=== PATIENT | female | born 1950 | race Two or more races ===

== ENCOUNTER 2018-11-07 17:12 | Inpatient (IN) | payer OTHER ==
[~2018-11-07] VITALS: Ht 152.4 cm; Wt 68.0 kg
[~2018-11-07 17:12] MED LIST: COZAAR100 MG; HYZAAR 100-251 UDTAB PO; SYNTHROID150 MCG PO; VERELAN240 MG PO
[2018-11-07] MEDS ORDERED: SINGULAIR10 MG PO (17:15)
[2018-11-07] MEDS ORDERED: SYMBICORT 16010.2 GM IH (17:16)
--- NOTE | 2018-11-07 17:16 | NUR ---
PACIENTE AL MOMENTO ESTABLE, SIGNOS VITALES ESTABLES, ALERTA Y ORIENTADA X3 SATURANDO AL MOMENTO EN 96%, AL MOMENTO PACIENTE CON SONIDOS CREPITANTES AL AUSCULTARLA Y LEVE SIBILANCIAS. SE CONTINUA MONITOREANDO PRO CAMBIOS.
--- NOTE | 2018-11-07 17:44 | NUR ---
HUA EVALUA PTE. SE ORIENTA A PTE SOBRE TX MEDICO. PTE REFIERE COMPRENDER. SE COLECTAN MUESTRAS DE LABORATORIO BAJO MEDIDAS ASEPTICAS. SE ADMINISTRAN MEDICAMENTOS IRAM ORDEN MEDICA. SE NOTIFICAN MELODIE X. SE NOTIFICAN ABG Y TERAPIAS RESPIRATORIAS.
--- NOTE | 2018-11-07 23:21 | NUR ---
PT ALERTA Y ORIENTADA X3 ESFERAS EN COMPANIA DE FAMILIAR. SE RECIBE EN CAMA CON BARANDAS ELEVADAS Y FRENOS COLOCADOS. HEPARIN LOCK PATANTE. PEAK FLOW [address] DONG[address] PT [place]. PENDIENTE RE-EVALUACION MEDICA.
== END 2018-11-14 14:26 | disposition home or self-care (01) | DRG 203 ==
LOC: ER 17:12 → MEDI 11-08 00:30 → MEDJ 11-08 00:30 → MEDI 11-14 14:26
PROVIDERS: ADMIT Internal Medicine
PROC: 3E0F7GC Introduction of Other Therapeutic Substance into Respiratory Tract, Via Natural or Artificial Opening (ICD-10-PCS; principal; 2018-11-08)
DX: J45.41 Moderate persistent asthma with (acute) exacerbation (principal); J45.42 Moderate persistent asthma with status asthmaticus; I11.9 Hypertensive heart disease without heart failure; E03.8 Other specified hypothyroidism; F32.9 Major depressive disorder, single episode, unspecified

== ENCOUNTER 2024-10-27 09:56 | Outpatient (CLI) | payer OTHER ==
[~2024-10-27 09:56] MED LIST changes: +SINGULAIR10 MG PO; +SYMBICORT 16010.2 GM IH
== END 2024-10-27 10:28 | disposition home or self-care (01) ==
LOC: MRI 09:56
PROVIDERS: ATTEND Orthopaedic Surgery
DX: M25.512 Pain in left shoulder (principal)
CPT/HCPCS: 73221